=== PATIENT | female | born 1970 | race Caucasian/White ===

== ENCOUNTER 2017-01-19 02:36 | Emergency (ER) | payer BC, OTHER ==
[~2017-01-19] VITALS: Ht 167.6 cm; Wt 100.0 kg
[2017-01-19 02:40] VITALS: Ht 167.6 cm; Wt 100.0 kg
--- NOTE | 2017-01-19 04:25 | ERD ---
ER Documentation Chief Complaint Date/Time DATE: 01/19/17 TIME: 04:22 Chief Complaint pt awoken with "rapid hr" abcd intact, nad HPI 46-year-old female presents here in emergency department for episode of palpitations upon waking up. Patient woke up with palpitations, resolved immediately. At this time, patient denies any more palpitations. Patient denies any chest pain. Patient started to have lower back pain, is worried that she may have infection in her urine. Patient described the pain as sharp pain, 6/10 , is worse upon movement. Patient denies any dysuria or hematuria. Patient did not take any medications elevated symptoms. Patient denies any trauma and affected area. Patient denies any numbness or tingling. Patient denies any fever or chills. Patient denies any dyspnea on exertion or dyspnea on lying down. ROS All systems reviewed and are negative except as per history of present illness. Medications Home Meds Reported Medications [none] Unknown Strength No Conflict Check 01/19/17 Allergies Allergies: Coded Allergies: No Known Allergy (Unverified , 10/12/15) PMhx/Soc Medical and Surgical Hx: pt denies Medical Hx, pt denies Surgical Hx History of Surgery: No Anesthesia Reaction: No Hx Neurological Disorder: No Hx Respiratory Disorders: No Hx Cardiac Disorders: No Hx Psychiatric Problems: No Hx Miscellaneous Medical Probl: No Hx Alcohol Use: No Hx Substance Use: No Hx Tobacco Use: Yes Smoking Status: Current some day smoker FmHx Family History: No coronary disease, No diabetes, No other Physical Exam Vitals Vital Signs Date Time Temp Pulse Resp B/P Pulse Ox O2 Delivery O2 Flow Rate FiO2 01/19/17 02:40 98.3 95 18 147/59 100 Physical Exam GENERAL: The patient is well developed and appropriate for usual state of health, in no apparent distress. CHEST: Clear to auscultation bilaterally. There are no rales, wheezes or rhonchi. HEART: Regular rate and rhythm. No murmurs, clicks, rubs or gallops. No S3 or S4. ABDOMEN: Soft, nontender and nondistended. Good bowel sounds. No rebound or guarding. No gross peritonitis. No gross organomegaly or masses. No Greer sign or McBurney point tenderness. BACK: No midline or flank tenderness. Muscle spasms noted in the paraspinal aspect of the lower lumbar spine. Patient is able to do full range of motion without any restriction. EXTREMITIES: Equal pulses bilaterally. There is no peripheral clubbing, cyanosis or edema. No focal swelling or erythema. Full range of motion. Grossly neurovascularly intact. NEURO: Alert and oriented. Cranial nerves 2-12 intact. Motor strength in all 4 extremities with 5/5 strength. Sensation grossly intact. Normal speech and gait. SKIN: There is no apparent rash or petechia. The skin is warm and dry. HEMATOLOGIC AND LYMPHATIC: There is no evidence of excessive bruising or lymphedema. No gross cervical, axillary, or inguinal lymphadenopathy. Results 24 hrs Laboratory Tests Test 01/19/17 04:49 Bedside Urine Blood Negative Bedside Urine Glucose (UA) Negative Bedside Urine Ketones (LAB) Negative Bedside Urine Leukocyte Esterase (L Negative Bedside Urine Nitrite (LAB) Negative Bedside Urine Protein (LAB) Negative Bedside Urine pH (LAB) 6.0 EKG was done, read by me and is normal sinus rhythm at a rate of 88, normal axis , there is no ST changes or changes in the EKG that indicates any cardiac emergencies at this time. Patient's EKG was also reviewed by Dr. Shane. Impression: no acute findings on EKG Procedures/MDM Medical Decision Making: Patient's pain is most likely consistent with a back strain. Patient does not have any urinary tract infection.. There is no suspicion for neurovascular compromise. Patient has intact sensation and circulation of the distal extremities. There is low suspicion for septic arthritis. Patient does not have any fever. Radiology exam is not indicated at this time. He shows palpitations nonspecific at this time, possibly had an anxiety attack. At this time, patient symptoms are improved. No symptoms of homicidal or suicidal ideations. No suspicion for cardiopulmonary emergencies at this time. Disposition: Home. Patient is given prescription for ibuprofen for pain, Flexeril for muscle spasms [place] for severe pain.. Patient was advised to see primary care doctor, possible Holter monitoring with primary care doctor. Patient was advised that if symptoms are worse, numbness, tingling, high fever, unable to move joint, worsening symptoms, to return to emergency department immediately. Otherwise, patient is advised to follow up with the primary care doctor in 5-7 days for reevaluation of symptoms. Departure Diagnosis: Primary Impression: Palpitations Additional Impression: Back pain Back pain location: low back pain Chronicity: acute Back pain laterality: bilateral Sciatica presence: without sciatica Qualified Code: M54.5 - Acute bilateral low back pain without sciatica Condition: Stable Patient Instructions: Back Pain (Acute Or Chronic), Palpitations Additional Instructions: Patient is given prescription for ibuprofen for pain, Flexeril for muscle spasms [place] for severe pain.. Patient was advised to see primary care doctor, possible Holter monitoring with primary care doctor. Patient was advised that if symptoms are worse, numbness, tingling, high fever, unable to move joint, worsening symptoms, to return to emergency department immediately. Otherwise, patient is advised to follow up with the primary care doctor in 5-7 days for reevaluation of symptoms. MARIPOSA CARTER NP Jan 19, 2017 04:25
[2017-01-19 04:46] LABS: URINE BLOOD (Dip) POC Negative (NEGATIVE)
[2017-01-19] MEDS ORDERED: IBUP-1542 PO (05:04)
[2017-01-19] MEDS ORDERED: CYCL-319 PO (05:04)
[2017-01-19] MEDS ORDERED: HYDR-906 PO (05:05)
== END 2017-01-19 05:21 | disposition home or self-care (01) ==
LOC: FTE 02:36
DX: R00.2 Palpitations (principal); M54.5 Low back pain; F17.210 Nicotine dependence, cigarettes, uncomplicated
CPT/HCPCS: 81003; 93005